=== PATIENT | male | born 1960 | race Caucasian/White ===

== ENCOUNTER 2019-04-29 00:45 | Emergency (ER) | payer OTHER ==
[2019-04-29 01:27] VITALS: TEMP 97.6; BMI 33.9
--- NOTE | 2019-04-29 01:41 | PDOC ---
Attending Attestation - Resident Resident Name: MaheshEarl schwarz - ED Attending Attestation I have performed the following: I have examined & evaluated the patient, The case was reviewed & discussed with the resident, I agree w/resident's findings & plan - HPI HPI: 04/29/19 03:39 see resident hpi - Physicial Exam PE: 04/29/19 03:39 see resident exam - Medical Decision Making 04/29/19 03:39 58-year-old male with intermittent dizziness when laying flat especially on his left side Patient states it has interrupted his sleep and has made him anxious He denies any symptoms at this time Patient given meclizine in the emergency department, he remains asymptomatic CT scan of the brain shows no intracranial abnormality, there is a sinus mass, malignancy recommended to be ruled out Patient has had no epistasis or fever He has no neck stiffness Will DC with outpatient ENT follow-up, CT results reviewed
[2019-04-29] MEDS ORDERED: MECLIZINE HCL 25 MG TABLET (FP) PO ONE (01:42)
[2019-04-29] MEDS ORDERED: MECLIZINE HCL 25 MG TABLET (FP) ONE (01:48)
--- NOTE | 2019-04-29 02:15 | PDOC ---
History of Present Illness - General Chief Complaint: Shortness of Breath Stated Complaint: ELVATED HEART RATE Time Seen by Provider: 04/29/19 01:41 History Source: Patient Exam Limitations: No Limitations - History of Present Illness Initial Comments: 04/29/19 02:06 58 yo male pmh [place] 2006 (on daily 81 mg ASA) chronic sinusitis presents to the ED for 1 week of dizziness. Pt states he had URI symptoms last week with cough congestion and sneezing without fevers, all symptoms resolved however, pt notes very positional dizziness. Pt states every time he lays on his left side to sleep he feels dizzy and as if he is falling and is unable to sleep over the past 5 nights. When he closes his eyes or sits up, the symptoms resolve. Pt never had these symptoms in the past, denies WALTERS, changes in vision, weakness or sensory deficits on 1 side, neck pain, CP, SOB, abdominal pain, back pain, changes in bowel or bladder habits, N/V/F/C. Past History - Past Medical History Allergies/Adverse Reactions: Allergies Allergy/AdvReac Type Severity Reaction Status Date / Time No Known Allergies Allergy Verified 04/29/19 01:00 Home Medications: Ambulatory Orders Amoxicillin 500 mg PO 07/08/11 Aspirin 325 mg PO DAILY 07/08/11 Carisoprodol [Soma] 250 mg PO PRN 07/08/11 Nucynta PRN 07/08/11 Oxycodone HCl/Acetaminophen [Percocet 5-325 mg Tablet] 1 each PO Q6H PRN #10 02/06 Cardiac Disorders: Yes ([place] AGE 46) COPD: No Psychiatric Problems: Yes (ANXIETY) - Immunization History Immunization Up to Date: No - Psycho Social/Smoking Cessation Hx Smoking Status: No Smoking History: Never smoked Number of Cigarettes Smoked Daily: 0 Hx Alcohol Use: No Drug/Substance Use Hx: No Review of Systems - Review of Systems Constitutional: Yes: See HPI HEENTM: Yes: See HPI Respiratory: Yes: See HPI Cardiac (ROS): Yes: See HPI ABD/GI: Yes: See HPI : Yes: See HPI Musculoskeletal: Yes: See HPI Integumentary: Yes: See HPI Neurological: Yes: See HPI *Physical Exam - Vital Signs Last Vital Signs Temp Pulse Resp BP Pulse Ox 97.6 F 82 20 147/93 100 04/29/19 01:00 04/29/19 01:00 04/29/19 01:00 04/29/19 01:00 04/29/19 01:00 - Physical Exam General Appearance: Yes: Nourished, Appropriately Dressed. No: Apparent Distress HEENT: positive: EOMI, RUSTY, Pharynx Normal, Sinus Tenderness (left maxillary ) , Other (lateral nystagmus to the left reproducible ). negative: Tonsillar Erythema, Nasal Congestion, TM Bulging, TM Dull, TM Erythema Neck: positive: Supple. negative: Carotid bruit, Tender midline Respiratory/Chest: positive: Lungs Clear, Normal Breath Sounds. negative: Accessory Muscle Use, Rapid RR, Crackles, Rales, Rhonchi, Stridor, Wheezing Cardiovascular: positive: Regular Rhythm, Regular Rate, S1, S2. negative: Edema , JVD, Murmur Vascular Pulses: Dorsalis-Pedis (R): 4+, Doralis-Pedis (L): 4+ Gastrointestinal/Abdominal: positive: Flat, Soft. negative: Pulsatile Mass, Protuberent, Distended, Guarding, Rebound, Tenderness Musculoskeletal: negative: CVA Tenderness Extremity: positive: Normal Capillary Refill, Normal Inspection, Normal Range of Motion Integumentary: positive: Normal Color, Dry, Warm Neurologic: positive: hospitality coordinator II-XII NML intact, Fully Oriented, Alert, Normal Mood/ Affect, Normal Response, Motor Strength 5/5. negative: Facial Droop, Numbness, Confused, Disoriented ED Treatment Course - LABORATORY CBC & Chemistry Diagram: 04/29/19 02:24 04/29/19 02:24 - Medications Given in the ED: ED Medications Discontinued Medications Generic Name Dose Route Start Last Admin Trade Name Freq PRN Reason Stop Dose Admin Meclizine HCl 25 mg 04/29/19 01:42 04/29/19 01:51 Antivert - PO 04/29/19 01:43 25 mg ONCE ONE Administration Medical Decision Making - Medical Decision Making 04/29/19 02:42 58 yo male pmh [place] 2006 (on daily 81 mg ASA), anxiety, chronic sinusitis presents to the ED for 1 week of dizziness. Pt states he had URI symptoms last week with cough congestion and sneezing without fevers, all symptoms resolved however, pt notes very positional dizziness. Pt states every time he lays on his left side to sleep he feels dizzy and as if he is falling and is unable to sleep over the past 5 nights. When he closes his eyes or sits up, the symptoms resolve. Pt never had these symptoms in the past, denies WALTERS, changes in vision, weakness or sensory deficits on 1 side, neck pain, CP, SOB, abdominal pain, back pain, changes in bowel or bladder habits, N/V/F/C. vitals WNL NAD, pt is not ataxic and has reproducible dizziness and reproducible lateral beating nystagmus Due to age and hx of [place] with vague symptoms, labs, EKG and head CT ordered EKG NSR vent rate 78, no acute signs of ischemia Pt likely has peripheral vertigo 04/29/19 03:[address] neg for acute bleed however, f/u recommended to r/o sinonasal neoplasm due to lobulated callosal thickening/polyp to left maxillary sinus pt safe for DC home with F/U with ENT Discharge - Discharge Information Problems reviewed: Yes Clinical Impression/Diagnosis: Vertigo Condition: Stable Disposition: HOME - Admission No - Follow up/Referral Referrals: Carl Sweeney MD [Staff Physician] - [facility] – [place] [facility] [place] [Provider Group] - Patient Discharge Instructions Patient Printed Discharge Instructions: DI for Vertigo Additional Instructions: Please see the primary doctor referred to you and make an appointment to see the ENT doctor referred to you within the next 48 hours. Take the medication Meclizine as prescribed and as needed for dizziness. Return to the ER for new or concerning symptoms including but not limited to: headaches, fevers, changes in vision, weakness on 1 side. Thank you - Post Discharge Activity
[2019-04-29 02:41] LABS: BASO % 0.8 % (0-2.0); EOS % 1.9 % (0-4.5); HEMATOCRIT 45.9 % (35.4-49); HEMOGLOBIN 15.8 GM/dL (11.7-16.9); LYMPH % 18.3 % (8-40); MCH 32.4 pg (25.7-33.7); MCHC 34.4 g/dl (32.0-35.9); MONO % 11.8 % (3.8-10.2); NEUT % 67.2 % (42.8-82.8); PLATELET COUNT 282 K/MM3 (134-434); RBC 4.88 M/mm3 (4.00-5.60); RDW 12.5 % (11.9-15.9); WHITE BLOOD COUNT 7.5 K/mm3 (4.0-10.0)
[2019-04-29 03:14] LABS: ALBUMIN 4.3 g/dl (3.4-5.0); BILIRUBIN,TOTAL 0.5 mg/dL (0.2-1); BLOOD UREA NITROGEN 24.3 mg/dL (7-18); CREATININE 1.3 mg/dL (0.55-1.3); POTASSIUM 4.4 mmol/L (3.5-5.1); TOT PROT 7.2 g/dl (6.4-8.2)
[2019-04-29 03:58] VITALS: BP 136/78; PULSE 78
--- NOTE | 2019-04-29 10:33 | EKG ---
Test Reason : Blood Pressure : / mmHG Vent. Rate : 078 BPM Atrial Rate : 078 BPM P-R Int : 172 ms QRS Dur : 110 ms QT Int : 372 ms P-R-T Axes : 069 023 062 degrees QTc Int : 424 ms NORMAL SINUS RHYTHM NORMAL ECG WHEN COMPARED WITH ECG OF 25-JAN-2007 14:43, NO SIGNIFICANT CHANGE WAS FOUND Confirmed by Tom Tinoco MD ([id number]) on 04/29/2019 10:33:00 AM Referred By: Confirmed By:Tom Tinoco MD
== END 2019-04-29 03:58 | disposition home or self-care (01) ==
LOC: JER 00:45
DX: R42 Dizziness and giddiness (principal); J32.9 Chronic sinusitis, unspecified; F41.9 Anxiety disorder, unspecified; I25.2 Old myocardial infarction; Z79.82 Long term (current) use of aspirin
CPT/HCPCS: 36415; 70450-TC; 80053; 82550; 82553; 84484; 85025; 93005; 93010; 99285-25